=== PATIENT | male | born 1980 | race Caucasian/White ===

== ENCOUNTER 2020-06-05 23:25 | Emergency (ER) | payer MEDICAID, SELFPAY ==
[~2020-06-05] VITALS: Ht 180.3 cm; Wt 80.7 kg
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
--- NOTE | 2020-06-05 23:35 | NUR ---
ED Nurse Note: Urine specimen sent
--- NOTE | 2020-06-06 00:15 | NUR ---
ED Nurse Note: Blood sent for workup
[2020-06-06 00:23] LABS: EOSINOPHILS % (AUTO) 2.1 % (0.0-3.0); HEMATOCRIT 43.3 % (42.0-52.0); HEMOGLOBIN 14.5 G/DL (14.2-18.0); LYMPHOCYTES % (AUTO) 23.9 % (20.0-45.0); MEAN CORPUSCULAR VOLUME 90 FL (80-99); MONOCYTES % (AUTO) 5.7 % (1.0-10.0); NEUTROPHILS % (AUTO) 67.3 % (45.0-75.0); PLATELET COUNT 318 K/UL (150-450); RED BLOOD COUNT 4.84 M/UL (4.70-6.10); RED CELL DISTRIBUTION WIDTH 14.6 % (11.6-14.8); WHITE BLOOD COUNT 11.4 K/UL (4.8-10.8)
--- NOTE | 2020-06-06 00:30 | NUR ---
ED Nurse Note: Pt to CT scan per bed with RN
[2020-06-06 00:32] VITALS: BP 122/79
[2020-06-06 00:36] LABS: APPEARANCE,URINE CLEAR; BILIRUBIN, URINE NEGATIVE (NEGATIVE); COLOR,URINE YELLOW; GLUCOSE, URINE (UA) NEGATIVE (NEGATIVE); KETONES,URINE NEGATIVE (NEGATIVE); LEUKOCYTE ESTERASE ,URINE TRACE (NEGATIVE); NITRITE,URINE NEGATIVE (NEGATIVE); PROTEIN,URINE NEGATIVE (NEGATIVE); UROBILINOGEN,URINE NORMAL MG/DL (0.0-1.0)
[2020-06-06 00:43] LABS: ANION GAP 11 mmol/L (5-15); BLOOD UREA NITROGEN 14 mg/dL (7-18); CARBON DIOXIDE 27 MMOL/L (21-32); CHLORIDE 102 MMOL/L (98-107); CREATININE 1.2 MG/DL (0.55-1.30); POTASSIUM 4.2 MMOL/L (3.5-5.1); SODIUM 140 MMOL/L (136-145)
--- NOTE | 2020-06-06 00:44 | Diagnostic Imaging Report ---
EXAM: XR Chest, 1 View CLINICAL HISTORY: ALOC TECHNIQUE: Frontal view of the chest. COMPARISON: No relevant prior studies available. FINDINGS: Lungs: Low lung volumes with bronchovascular crowding. No consolidation, pleural effusion, or pneumothorax. Pleural space: See above. Heart: Unremarkable. No cardiomegaly. Mediastinum: Unremarkable. Bones/joints: No acute abnormality IMPRESSION: 1. Low lung volumes with bronchovascular crowding. 2. Otherwise no acute cardiopulmonary disease. 3. If there is further concern, recommend additional imaging such as CT.
[2020-06-06 00:47] LABS: ALANINE AMINOTRANSFERASE 49 U/L (12-78); ALBUMIN 4.2 G/DL (3.4-5.0); ALBUMIN/GLOBULIN RATIO 0.9 (1.0-2.7); ALKALINE PHOSPHATASE 73 U/L (46-116); ASPARTATE AMINO TRANSFERASE 27 U/L (15-37); BILIRUBIN,TOTAL 0.2 MG/DL (0.2-1.0); CREATINE KINASE 135 U/L (26-308)
--- NOTE | 2020-06-06 01:00 | NUR ---
ED Nurse Note: Patient is awake and alert. Reoriented with time and place
--- NOTE | 2020-06-06 01:19 | Diagnostic Imaging Report ---
EXAM: CT Head Without Intravenous Contrast CLINICAL HISTORY: ALOC TECHNIQUE: Axial computed tomography images of the head/brain without intravenous contrast. CTDI is 53.40 mGy and DLP is 1018.80 mGy-cm. One or more of the following dose reduction techniques were used: automated exposure control, adjustment of the mA and/or kV according to patient size, use of iterative reconstruction technique. COMPARISON: No relevant prior studies available. FINDINGS: Brain: Unremarkable. No hemorrhage. No significant white matter disease. No edema. Ventricles: Unremarkable. No ventriculomegaly. Bones/joints: Unremarkable. No acute fracture. Soft tissues: Unremarkable. Sinuses: Unremarkable as visualized. No acute sinusitis. Mastoid air cells: Unremarkable as visualized. No mastoid effusion. IMPRESSION: 1. No acute intracranial abnormality. 2. Unremarkable study.
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
--- NOTE | 2020-06-06 01:59 | NUR ---
ED Nurse Note: Patient is AAOx4 and ambulatory. Non combative and cooperative.
--- NOTE | 2020-06-06 02:18 | NUR ---
ER DISCHARGE NOTE: Patient is cleared to be discharged per ERMD, pt is aox4, on room air, with stable vital signs. pt was given dc and prescription instructions, pt was able to verbalize understanding, pt id band and iv site removed without complications. pt is able to ambulate with steady gait. pt took all belongings.
[2020-06-06 02:19] VITALS: BP 124/87
== END 2020-06-06 02:21 | disposition home or self-care (01) ==
LOC: EDBD 23:25 → EMR 23:52
DX: R40.4 Transient alteration of awareness (principal); R45.1 Restlessness and agitation; R00.1 Bradycardia, unspecified
CPT/HCPCS: 36415; 70450; 71045; 80053; 80307; 81003; 82550; 83605; 84484; 85025; 93005; 96360; G0480; G0481; Z7502; 99284